=== PATIENT | female | born 1955 | race Caucasian/White ===

== ENCOUNTER 2019-07-15 14:30 | Inpatient (IN) | payer BC ==
[~2019-07-15] VITALS: Ht 175.3 cm; Wt 82.0 kg
[2019-07-15] MEDS ORDERED: ZOFRAN ODT4 MG/UDTAB PO (17:46)
--- NOTE | 2019-07-15 17:56 | NUR ---
RECIVED FROM DR KERR TO ROOM 2110. ADMIT ASSISMENT PER RN
[2019-07-15 18:26] VITALS: BP 120/65
[2019-07-15 18:50] LABS: BASOPHILS 0.1 % (0-2); EOSINOPHILS 0 % (0-7); HEMOGLOBIN 13.6 g/dL (12-16); IMMATURE GRANULOCYTES 0.9 % (0-5); LYMPHOCYTES 5.7 % (15-50); MCH 29.5 pg (26.0-34.0); MCV 86.8 fL (80.0-100.0); MEAN PLATELET VOLUME 9.4 fL (7.4-10.4); MONOCYTES 3.6 % (2-11); NEUTROPHILS 89.7 % (40-80); PLATELET COUNT 168 10x3/uL (130-400); RBC 4.61 10x6/uL (4.00-5.40); RDW 13.1 % (11.5-14.5); WBC 14.9 10x3/uL (4.8-10.8)
[2019-07-15 19:07] LABS: INR 1.24 (0.85-1.17); PROTIME 15.6 SECONDS (11.6-15.0)
[2019-07-15 19:33] LABS: CALC OSMOLALITY 253 mosm/kg (275-300); CALCIUM 8.2 mg/dL (8.5-10.1); CARBON DIOXIDE 25.5 mmol/L (21.0-32.0); CHLORIDE - SERUM 91 mmol/L (98-107); CREATININE - SERUM 1.1 mg/dL (0.6-1.3); GLUCOSE 137 mg/dL (74-106); POTASSIUM - SERUM 3.5 mmol/L (3.5-5.1); SODIUM 125 mmol/L (136-145); UREA NITROGEN 13 mg/dL (7-18); eGFR NON AFRICAN AMERICAN 53 mL/min (90-120)
[2019-07-15 19:46] LABS: D-DIMER-QUANTITATIVE 4.98 ug/mLFEU (0.20-0.54)
[2019-07-15 19:52] LABS: ERYTHROCYTE SEDIMENTATION RATE 50 mm/hr (0-30)
[2019-07-15 20:00] VITALS: BP 125/75
[2019-07-15 20:08] LABS: ALBUMIN 2.9 g/dL (3.4-5.0); ALKALINE PHOSPHATASE 43 U/L (30-120); ALT (SGPT) 84 U/L (10-68); BILIRUBIN - TOTAL 0.58 mg/dL (0.2-1.3); CKMB 0.3 U/L (0.0-3.6); CREATINE KINASE 284 UL (21-215); MAGNESIUM - SERUM 2.2 mg/dL (1.8-2.4); PHOSPHOROUS 2.1 mg/dL (2.5-4.9); PROTEIN - SERUM 6.3 g/dL (6.4-8.2)
[2019-07-15 20:10] LABS: FERRITIN 2121 ng/mL (3-244); TROPONIN-I < 0.017 ng/mL (0.000-0.060)
[2019-07-15 20:27] LABS: C-REACTIVE PROTEIN 29.7 mg/dL (0.0-0.9)
--- NOTE | 2019-07-15 23:20 | NUR ---
NEW 20G PIV STARTED IN R FOREARM FOR CT AT THIS TIME. CL IN REACH, BED IN LOWEST POSITION.
[2019-07-16] VITALS: BP 119/76
--- NOTE | 2019-07-16 00:15 | NUR ---
PT TO CT AT THIS TIME.
--- NOTE | 2019-07-16 00:21 | NUR ---
PT RETURNED FROM CT AT THIS TIME. PT PIV RESTARTED TO R FOREARM, PT DENIES ANY PAIN OR NEEDS AT THIS TIME. CL IN REACH, BED IN LOWEST POSITION.
[2019-07-16 04:00] VITALS: BP 117/73
[2019-07-16 06:20] VITALS: BMI 27.9
[2019-07-16 07:17] LABS: ALBUMIN 2.5 g/dL (3.4-5.0); ALKALINE PHOSPHATASE 37 U/L (30-120); ALT (SGPT) 75 U/L (10-68); BILIRUBIN - TOTAL 0.52 mg/dL (0.2-1.3); CALCIUM 7.7 mg/dL (8.5-10.1); CARBON DIOXIDE 24.3 mmol/L (21.0-32.0); CHLORIDE - SERUM 96 mmol/L (98-107); GLUCOSE 107 mg/dL (74-106); MAGNESIUM - SERUM 2.2 mg/dL (1.8-2.4); PHOSPHOROUS 2.3 mg/dL (2.5-4.9); POTASSIUM - SERUM 3.5 mmol/L (3.5-5.1); PROTEIN - SERUM 5.6 g/dL (6.4-8.2); SODIUM 128 mmol/L (136-145); eGFR NON AFRICAN AMERICAN 77 mL/min (90-120)
[2019-07-16 07:18] LABS: CALC OSMOLALITY 255 mosm/kg (275-300); CREATININE - SERUM 0.8 mg/dL (0.6-1.3); UREA NITROGEN 9 mg/dL (7-18)
[2019-07-16 08:01] LABS: BASOPHILS 0.1 % (0-2); EOSINOPHILS 0.5 % (0-7); HEMATOCRIT 38.6 % (36.0-48.0); HEMOGLOBIN 13.3 g/dL (12-16); IMMATURE GRANULOCYTES 1.3 % (0-5); MCH 29.3 pg (26.0-34.0); MCHC 34.5 g/dL (31.0-37.0); MEAN PLATELET VOLUME 9.8 fL (7.4-10.4); MONOCYTES 3.2 % (2-11); NEUTROPHILS 84.9 % (40-80); PLATELET COUNT 157 10x3/uL (130-400); RBC 4.54 10x6/uL (4.00-5.40); RDW 13.2 % (11.5-14.5); WBC 15.5 10x3/uL (4.8-10.8)
[2019-07-16 08:55] VITALS: BP 115/67
[2019-07-16 12:41] VITALS: BP 100/48
--- NOTE | 2019-07-16 13:10 | NUR ---
PT WITH TEMP THIS MORNING, TREATED WITH TYLENOL AND NORMAL NOW. SHE HAS BEEN SHAKING AND TREMBLING MOSTLY IN UPPER EXTREMITIES WHILE HOLDING THINGS. ON TELEMETRY RUNNING SINUS TACH LOW 100'S BUT UP IN 150'S WHEN GOING TO BATHROOM.
[2019-07-16 13:23] LABS: BILIRUBIN NEGATIVE (NEGATIVE); GLUCOSE NEGATIVE (NEGATIVE); KETONE NEGATIVE (NEGATIVE); NITRITE NEGATIVE (NEGATIVE); SPECIFIC GRAVITY 1.005 (1.005-1.020); UROBILINOGEN 4 mg/dL (NORMAL)
[2019-07-16 13:24] LABS: BACTERIA MODERATE /hpf (NEGATIVE); EPITHELIAL CELLS RARE /hpf (0-5); RED CELLS - URINE RARE /hpf (0-5); WHITE CELLS - URINE RARE /hpf (NEGATIVE)
--- NOTE | 2019-07-16 15:53 | NUR ---
DR KATTY MICHAEL RELATED TO PT'S TACHYCARDIA AND RECEIVING UPDRAFT TREATMENTS. TREATMENTS HELD, EKG AND LABS ORDERED.
[2019-07-16 16:34] VITALS: BP 111/61
--- NOTE | 2019-07-16 19:00 | NUR ---
EVENING ROUNDS COMPLETE. PT SITTING UP IN BED. NO SIGNS OF DISTRESS. PT DENIES ANY PAIN AT THIS TIME. PT REQUEST FOR SOMETHING TO EAT SINCE SHE WASNT ABLE TO FINISH DINNER BEFORE IT WAS REMOVED FROM HER ROOM, SANDWICH BOX PROVIDED. ASSISED PT TO SIT ON SIDE OF BED. PT NEEDED MINIMAL ASSISTANCE. NO OTHER NEEDS VOICED AT THIS TIME. CL IN REACH, BED IN LOWEST POSITION.
[2019-07-16 20:00] VITALS: BP 111/66
--- NOTE | 2019-07-16 23:30 | NUR ---
PT TEMP OF 101.5 ORAL. TYLENOL GIVEN AT THIS TIME. CL IN REACH, BED IN LOWEST POSITION. PT DENIES ANY PAIN OR NEEDS AT THIS TIME.
[2019-07-17] VITALS: BP 100/60
[2019-07-17 04:00] VITALS: BP 101/51
[2019-07-17 05:57] LABS: BASOPHILS 0.1 % (0-2); EOSINOPHILS 1.9 % (0-7); HEMATOCRIT 38.1 % (36.0-48.0); HEMOGLOBIN 12.6 g/dL (12-16); IMMATURE GRANULOCYTES 1.5 % (0-5); LYMPHOCYTES 11.8 % (15-50); MCHC 33.1 g/dL (31.0-37.0); MEAN PLATELET VOLUME 9.5 fL (7.4-10.4); MONOCYTES 1.8 % (2-11); NEUTROPHILS 82.9 % (40-80); PLATELET COUNT 177 10x3/uL (130-400); RBC 4.35 10x6/uL (4.00-5.40); RDW 13.4 % (11.5-14.5)
[2019-07-17 06:20] LABS: MCV 87.6 fL (80.0-100.0); WBC 8.7 10x3/uL (4.8-10.8)
[2019-07-17 06:26] LABS: ALBUMIN 2.4 g/dL (3.4-5.0); ANION GAP 11.3 mmol/L (8-16); BILIRUBIN - TOTAL 0.58 mg/dL (0.2-1.3); CALCIUM 7.6 mg/dL (8.5-10.1); CREATININE - SERUM 0.9 mg/dL (0.6-1.3); MAGNESIUM - SERUM 2.3 mg/dL (1.8-2.4); PHOSPHOROUS 2.6 mg/dL (2.5-4.9); POTASSIUM - SERUM 3.3 mmol/L (3.5-5.1); PROTEIN - SERUM 5.6 g/dL (6.4-8.2); VANCOMYCIN - TROUGH 6.1 ug/mL (10.0-20.0)
[2019-07-17 08:24] VITALS: BP 107/63
[2019-07-17 12:34] VITALS: BP 98/59
--- NOTE | 2019-07-17 15:28 | MORECARE ---
CASE MANAGEMENT DISCHARGE SUMMARY PATIENT: BABAR JACKMAN UNIT: [id number] ADM DATE: 07/15/19 AGE: 63 : 59 SEX: F ROOM/BED: D.2111 AUTHOR: BRENDA GUTIERREZ PHYSICIAN: REFERRING PHYSICIAN: NOE ROJAS MD DATE OF SERVICE: 07/17/19 Discharge Plan Patient Name: BABAR JACKMAN Facility: [facility]:[place] : 1955 Planned Disposition: Home Anticipated Discharge Date: Discharge Date: Expected LOS: Initial Reviewer: [email or web address] Initial Review Date: 07/17/2019 Generated: 07/17/19 4:28 pm Patient Name: BABAR JACKMAN Page [id number] at 1528 All edits/amendments must be made on the electronic document DICTATION DATE: 07/17/19 152 LIVE AMMUNITION INSPECTOR: CARLOS 07/17/19 1528 RPT#: [id number] DC DATE: STATUS: ADM IN [facility] [address] [place] [address] END OF REPORT
--- NOTE | 2019-07-17 15:36 | MORECARE ---
CASE MANAGEMENT DISCHARGE SUMMARY PATIENT: BABAR JACKMAN UNIT: [id number] ADM DATE: 07/15/19 AGE: 63 : 59 SEX: F ROOM/BED: D.[facility] AUTHOR: BRENDA GUTIERREZ PHYSICIAN: REFERRING PHYSICIAN: NOE ROJAS MD DATE OF SERVICE: 07/17/19 Discharge Plan Patient Name: BABAR JACKMAN [facility] [facility] 1955 Planned Disposition: Home Anticipated Discharge Date: Discharge Date: Expected LOS: Initial Reviewer: [email or web address] Initial Review Date: 07/17/2019 Generated: 07/17/19 4:35 pm DCPIA - Discharge Planning Initial Assessment Updated by [email or web address]: Kalli Workman on 07/17/19 3:34 pm * Is the patient Alert and Oriented? Yes * How many steps to enter\exit or inside your home? 0/0 * PCP Dr. Rojas * Pharmacy [facility] on [address] * Preadmission Environment Home with Family * ADLs Independent * Equipment None * List name and contact numbers for known caregivers / representatives who currently or will assist patient after discharge: Mir Gutierrez - [facility] partner - [phone] * Verbal permission to speak to the caregivers and representatives has been obtained from the patient. Yes * Community resources currently utilized None * Additional services required to return to the preadmission environment? No * Can the patient safely return to the preadmission environment? Yes * Has this patient been hospitalized within the prior 30 days at any hospital? No Last DP export: 07/17/19 2:28 p Patient Name: BABAR JACKMAN Page 55513 at 1536 All edits/amendments must be made on the electronic document DICTATION DATE: 07/17/191534 OFFICE MESSENGER HELPER: CARLOS 07/17/191534 RPT#: [id number] DC DATE: STATUS: ADM IN [facility] [address] [place] [address] END OF REPORT
--- NOTE | 2019-07-17 15:45 | MORECARE ---
CASE MANAGEMENT DISCHARGE SUMMARY PATIENT: BABAR JACKMAN UNIT: [id number] ADM DATE: 07/15/19 AGE: 63 : 59 SEX: F ROOM/BED: D.2111 AUTHOR: BRENDA,DOC PHYSICIAN: REFERRING PHYSICIAN: NOE ROJAS MD DATE OF SERVICE: 07/17/19 Discharge Plan Patient Name: BABAR JACKMAN Facility: [facility]:[place] : 1955 Planned Disposition: Home Anticipated Discharge Date: Discharge Date: Expected LOS: Initial Reviewer: [email or web address] Initial Review Date: 07/17/2019 Generated: 07/17/19 4:44 pm Comments DCP- Discharge Planning Updated by [email or web address]: Kalli Workman on 07/17/19 2:[address] Patient Name: BABAR JACKMAN Admission Status: Elective Accout number: [id number] Admission Date: 07-15-2019 : 1955 Admission Diagnosis:SHORTNESS OF BREATH Attending: DREA Current LOS: 2 Anticipated DC Date: Planned Disposition: Home Primary Insurance: [employer] EXCHANGE Discharge Planning Comments: CM met with patient to discuss discharge planning, she is alone in the room. She lives with her 87 year old mother. She is independent with all ADL's and IADL's. I discussed the availability of home health, rehab and DME needs. She denies needs and states plan is to return home. She states her boyfriend will take her home at discharge. No needs identified. She will need to be off her oxygen prior to discharge. I spoke with Roxanne Calix, her sales agent casualty insurance, and Roxanne will f/u with patient on discharge. CM will continue to follow and assist with discharge planning/needs. Manager Social Responsibility: Kalli Workman DCPIA - Discharge Planning Initial Assessment Updated by [email or web address]: Kalli Workman on 07/17/19 3:34 pm * Is the patient Alert and Oriented? Yes * How many steps to enter\exit or inside your home? 0/0 * PCP Dr. Rojas * Pharmacy [facility] on [address] * Preadmission Environment Home with Family * ADLs Independent * Equipment None * List name and contact numbers for known caregivers / representatives who currently or will assist patient after discharge: Mir Gutierrez - [facility] partner - [phone] * Verbal permission to speak to the caregivers and representatives has been obtained from the patient. Yes * Community resources currently utilized None * Additional services required to return to the preadmission environment? No * Can the patient safely return to the preadmission environment? Yes * Has this patient been hospitalized within the prior 30 days at any hospital? No Last DP export: 07/17/19 2:35 p Patient Name: BABAR JACKMAN Page [id number] at 1545 All edits/amendments must be made on the electronic document DICTATION DATE: 07/17/191543 CEMENTER MACHINE APPLICATOR: CARLOS 07/17/191543 RPT#: [id number] DC DATE: STATUS: ADM IN [facility] [address] [place] [address] END OF REPORT
[2019-07-17 16:22] VITALS: BP 111/66
[2019-07-17 20:30] VITALS: BP 111/70
--- NOTE | 2019-07-17 23:27 | NUR ---
RECEIVED SITTING UP IN THE MIDDLE OF THE BED. ALERT AND ORIENTED X4. DOES HAVE PERIODS OF FORGETFULNESS. UP AD ДМИТРИЙ. O2@ 2 LITERS PER N/C. IV TO LT FA WITH NS AT 100CC/HR.DENIES ANY NEEDS AT THIS TIME.
[2019-07-18 00:30] VITALS: BP 115/54
[2019-07-18 04:30] VITALS: BP 128/69
[2019-07-18 04:55] LABS: BASOPHILS 0.3 % (0-2); EOSINOPHILS 2.9 % (0-7); HEMATOCRIT 34.6 % (36.0-48.0); HEMOGLOBIN 11.4 g/dL (12-16); IMMATURE GRANULOCYTES 0.8 % (0-5); LYMPHOCYTES 14.5 % (15-50); MCH 28.8 pg (26.0-34.0); MCHC 32.9 g/dL (31.0-37.0); MCV 87.4 fL (80.0-100.0); MEAN PLATELET VOLUME 9.8 fL (7.4-10.4); MONOCYTES 4.7 % (2-11); NEUTROPHILS 76.8 % (40-80); PLATELET COUNT 144 10x3/uL (130-400); RBC 3.96 10x6/uL (4.00-5.40); RDW 13.5 % (11.5-14.5); WBC 7.5 10x3/uL (4.8-10.8)
[2019-07-18 05:34] LABS: ALBUMIN 2.1 g/dL (3.4-5.0); ANION GAP 8.5 mmol/L (8-16); BILIRUBIN - TOTAL 0.37 mg/dL (0.2-1.3); CALCIUM 7.9 mg/dL (8.5-10.1); CARBON DIOXIDE 25.7 mmol/L (21.0-32.0); CREATININE - SERUM 0.9 mg/dL (0.6-1.3); MAGNESIUM - SERUM 2.3 mg/dL (1.8-2.4); POTASSIUM - SERUM 3.2 mmol/L (3.5-5.1); PROTEIN - SERUM 5.8 g/dL (6.4-8.2)
--- NOTE | 2019-07-18 08:48 | NUR ---
7929-ROUNDING DONE WITH PATIENT HAVING NO NEEDS AT THIS TIME. LEFT INNER FORARM WITH IV INFUSING AT 100 CC/HR, SLIGHTLY RED IN COLOR. DENIES ANY PAIN OR DISCOMFORT AT SITE. SALINE LOCK FOR NOW. ON HEART MONITOR SHOWING SR, HR 92. ON 2L PER NC. GLASSES ON. ON EP, K+ WAS 3.2 AND COVERED. LAB IS ORDERED FOR RE-DRAW. CALL LIGHT IN USE.
--- NOTE | 2019-07-18 08:51 | NUR ---
CALLED BACK INTO ROOM PATIENT STATES THAT SHE IS "FEELING MUCH BETTER AND ON TRACK". ASKING TO TAKE A SHOWER. I ASKED THAT WE GET MEDS DONE AND WAIT CLOSED TO NOON OR SLIGHTLY AFTER TO SEE HOW SHE DOES. STATES, "THAT'S OKAYW ITH ME".
[2019-07-18 09:47] VITALS: BP 109/67
--- NOTE | 2019-07-18 10:53 | NUR ---
IV SITE TO LEFT INNER FA IS STILL RED. I WENT AHEAD AND REMOVED CATH WITH TIP INTACT. RESITED WITH 1 STICK TO RIGHT WRIST WITH 22 G. TOLERATED WELL.
[2019-07-18 13:10] VITALS: BP 107/65
--- NOTE | 2019-07-18 15:31 | NUR ---
PATIENT IS AWAKE NOW. DOES NOT WANT TO WASH UP OR HAVE LINENS CHANGED AT THIS TIME. JUST WANTS TO "CHILL". DOES NOT WANT TO TAKE HER ELADIA REMY. A/O X 4.
[2019-07-18 17:59] VITALS: BP 115/66; BP 140/71
--- NOTE | 2019-07-18 19:54 | NUR ---
RECEIVED BEDSIDE SHIFT REPORT. ALERT AND ORIETNED X4. LAYING IN BED WITH TV ON.IV TO RT WRIST SL. TELEMETRY IN PLACE. DENIES ANY NEEDS AT THIS TIME.
[2019-07-18 20:30] VITALS: BP 120/68
[2019-07-19 00:30] VITALS: BP 113/68
[2019-07-19 04:25] VITALS: BP 118/75
[2019-07-19 05:01] LABS: BASOPHILS 0.2 % (0-2); EOSINOPHILS 3.3 % (0-7); HEMATOCRIT 34.7 % (36.0-48.0); HEMOGLOBIN 11.2 g/dL (12-16); IMMATURE GRANULOCYTES 0.6 % (0-5); LYMPHOCYTES 18.2 % (15-50); MCH 28.7 pg (26.0-34.0); MCHC 32.3 g/dL (31.0-37.0); MEAN PLATELET VOLUME 9.4 fL (7.4-10.4); MONOCYTES 4.9 % (2-11); NEUTROPHILS 72.8 % (40-80); PLATELET COUNT 167 10x3/uL (130-400); RDW 13.9 % (11.5-14.5); WBC 6.3 10x3/uL (4.8-10.8)
[2019-07-19 05:18] LABS: ALKALINE PHOSPHATASE 35 U/L (30-120); ALT (SGPT) 90 U/L (10-68); BILIRUBIN - TOTAL 0.37 mg/dL (0.2-1.3); CALC OSMOLALITY 280 mosm/kg (275-300); CALCIUM 7.4 mg/dL (8.5-10.1); CARBON DIOXIDE 27.4 mmol/L (21.0-32.0); CHLORIDE - SERUM 108 mmol/L (98-107); GLUCOSE 98 mg/dL (74-106); MAGNESIUM - SERUM 2.2 mg/dL (1.8-2.4); PHOSPHOROUS 2.2 mg/dL (2.5-4.9); POTASSIUM - SERUM 3.8 mmol/L (3.5-5.1); PROTEIN - SERUM 5.5 g/dL (6.4-8.2); SODIUM 142 mmol/L (136-145); UREA NITROGEN 8 mg/dL (7-18)
[2019-07-19 05:27] LABS: CREATININE - SERUM 0.6 mg/dL (0.6-1.3); eGFR NON AFRICAN AMERICAN > 90 mL/min (90-120)
--- NOTE | 2019-07-19 07:20 | NUR ---
RECIEVE REPORT. RESTING IN BED WITH EYES CLOSED. AROUSES TO STIMULI EASILY. DENIES ANY NEEDS. CONTINUE PLAN OF CARE AND SAFETY PRECAUTIONS.
--- NOTE | 2019-07-19 08:56 | EC ---
PATIENT:BABAR JACKMAN DATE OF SERVICE: 07/15/19 SEX: F MEDICAL RECORD: [id number] DATE OF : [birth year] LOCATION:D.M2 D.211 AGE OF PATIENT: 63 ADMISSION DATE: 07/15/19 REFERRING PHYSICIAN: INTERPRETING PHYSICIAN: KELSEY ALEXANDER MD ECHOCARDIOGRAM REPORT ECHO CHARGES 4 ECHO COMPLETE Date: 07/17/19 CLINICAL DIAGNOSIS: AFIB ECHOCARDIOGRAPHIC MEASUREMENTS (adult normal given) AC root (d.<3.7cm) 2.7 cm LV Septum d (<1.2 cm> 1.0 cm Valve Excursion 1.8 cm LV Septum (systole) 1.3 cm Left Atria (s.<4.0cm> 3.0 cm LVPW d(<1.2cm) 0.9 cm RV (d.<2.3cm) 2.3 cm LVPW (sytole) 1.2 cm LV diastole(<5.6CM) 4.9 cm MV E-F(>70mm/sec) cm LV systole 3.6 cm LVOT Diameter 1.8 cm MV exc.(>10mm) cm Est.ejection fraction (50-75%) % DOPPLER: LVIT cm/sec A 74 cm/sec E 93 cm/sec LA cm/sec RVSP 16.8 mmHg LVOT 105 cm/sec AOP1/2T m/s Asc. Ao 142 cm/sec RVOT 64 cm/sec RA cm/sec PA 85 cm/sec AV Gradient Peak 8.1 mmHg AV Mean 4.6 mmHg AV Area 2.1 cm MV Gradient Peak 5.0 mmHg MV Mean 2.9 mmHg MV Area cm COMMENTS: Meat Pickler: Ramila SPENCER Franchise Sales Director: 3 Dr. Lambert TAPE# PACS Pericardial Effusion N DATE OF SERVICE: Adequate 2D, color flow imaging, spectral Doppler, and M-Mode No LVH. LV internal dimension is normal. Wall motion is normal. EF is greater than or equal to 55%. Aortic valve is tricuspid. No evidence of stenosis by Doppler interrogation. Left atrium is normal at 3.0 cm. Mitral valve shows no prolapse. Trace MR. Right-sided chambers are grossly normal. Trace TR. TRANSINT:[id number] Voice Confirmation ID: [id number] DOCUMENT ID: [id number] ECHOCARDIOGRAM REPORT [id number] JACKMAN,BABARKELSEY TREJO MD at 0856 CC: [id number] DICTATION DATE: 07/18/19 1000 SUPERVISOR [employer]: 07/18/19 1510 ADM IN [place] [id number] [place] [id number]
[2019-07-19 09:24] VITALS: BP 113/66
[2019-07-19 12:10] VITALS: BP 106/63; BP 161/74
[2019-07-19 20:00] VITALS: BP 123/79
--- NOTE | 2019-07-19 20:18 | NUR ---
RECIEVED UP IN BED WITH EYES OPEN AND TV ON. ALERT AND ORIENTED X4. UP ADF ДМИТРИЙ TO B/R.O2@2 LITERS PER N/C. IV TO RT WRIST SL. TELEMETRY IN PLACE. DENIES ANY NEEDS AT THIS TIME.
[2019-07-20 04:31] VITALS: BP 120/80
--- NOTE | 2019-07-20 07:20 | NUR ---
RECIEVE REPORT. ALERT AND ORIENTED X 4. SITTING UP IN BED. DENIES ANY NEEDS. NO SIGN OF DISTRESS. CONTINUE PLAN OF CARE AND SAFETY PRECAUTIONS.
[2019-07-20 08:00] LABS: BASOPHILS 0.2 % (0-2); EOSINOPHILS 4.1 % (0-7); HEMATOCRIT 40.6 % (36.0-48.0); HEMOGLOBIN 13.1 g/dL (12-16); IMMATURE GRANULOCYTES 0.5 % (0-5); LYMPHOCYTES 22.5 % (15-50); MCHC 32.3 g/dL (31.0-37.0); MCV 89.8 fL (80.0-100.0); MEAN PLATELET VOLUME 8.7 fL (7.4-10.4); MONOCYTES 6.5 % (2-11); NEUTROPHILS 66.2 % (40-80); RBC 4.52 10x6/uL (4.00-5.40); RDW 13.9 % (11.5-14.5)
[2019-07-20 08:05] LABS: PLATELET COUNT 347 10x3/uL (130-400); WBC 8.2 10x3/uL (4.8-10.8)
[2019-07-20 08:28] LABS: ALKALINE PHOSPHATASE 46 U/L (30-120); CALC OSMOLALITY 276 mosm/kg (275-300); CALCIUM 8.3 mg/dL (8.5-10.1); CARBON DIOXIDE 27.1 mmol/L (21.0-32.0); CHLORIDE - SERUM 107 mmol/L (98-107); CREATININE - SERUM 0.6 mg/dL (0.6-1.3); GLUCOSE 104 mg/dL (74-106); MAGNESIUM - SERUM 2.6 mg/dL (1.8-2.4); PROTEIN - SERUM 6.1 g/dL (6.4-8.2); SODIUM 139 mmol/L (136-145); UREA NITROGEN 9 mg/dL (7-18); eGFR NON AFRICAN AMERICAN > 90 mL/min (90-120)
[2019-07-20 08:29] LABS: ALBUMIN 2.6 g/dL (3.4-5.0); ALT (SGPT) 142 U/L (10-68); PHOSPHOROUS 3.4 mg/dL (2.5-4.9); POTASSIUM - SERUM 4.4 mmol/L (3.5-5.1)
[2019-07-20 09:46] VITALS: BP 112/68
[2019-07-20 11:51] VITALS: BP 98/65
--- NOTE | 2019-07-20 14:20 | NUR ---
ALERT AND ORIENTED X4. SITTING UP IN BED WATCHING TV. INFORM PATIENT OF REHAB PRESCREEN. PATIENT STATES, "NO, I AM NOT GOING TO REHAB. I CAN DO FOR MYSELF." NOTIFY MALOU PÉREZ PATIENT STATEMENT. RT HAND IV INFILTRATED. DC RT HAND IV TIP INTACT. CONTINUE PLAN OF CARE AND SAFETY PRECAUTIONS.
--- NOTE | 2019-07-20 14:54 | NUR ---
ALERT AND ORIENTED X4. SITTING UP IN BED. SPEECH THERAPY AT BEDSIDE. RESITE IV TO LT HAND 22G. CONTINUE ANTIBIOTICS ORDERED.
--- NOTE | 2019-07-20 14:55 | NUR ---
REHAB PRESCREENING Rehab referral received and chart reviewed. PT note today states this patient is up and walking around fine on her own and wants to be signed off to nursing. Please contact rehab if this patient has a decline in function. Thank you for this referral! Shawanda Riley, ANTIQUE CLOCK REPAIRER Rehab PD
--- NOTE | 2019-07-20 15:31 | MORECARE ---
CASE MANAGEMENT DISCHARGE SUMMARY PATIENT: BABAR JACKMAN UNIT: [id number] ADM DATE: 07/15/19 AGE: 63 : 59 SEX: F ROOM/BED: D.2111 AUTHOR: BRENDA,DOC PHYSICIAN: REFERRING PHYSICIAN: NOE ROJAS MD DATE OF SERVICE: 07/20/19 Discharge Plan Patient Name: BABAR JACKMAN Facility: [facility]:[place] : 1955 Planned Disposition: Home Anticipated Discharge Date: Discharge Date: Expected LOS: Initial Reviewer: [email or web address] Initial Review Date: 07/17/2019 Generated: 07/20/19 4:31 pm Comments DCP- Discharge Planning Updated by [email or web address]: Gisell Vega on 07/20/19 2:[address] CM visited patient regarding an order for Inpatient Rehab. patient states she has no need to go into rehab. Patient states she is independent with all of her care, walks around the room independently. Patient states if she requires IV antibiotics at time of DC, she will choose a HHS. Patient states she lives with her 87 year old mother, in a fdc community. Denies use of DME. States "I'm just not interested in rehab." CM will follow and assist PRN. DCP- Discharge Planning Updated by [email or web address]: Kalli Workman on 07/17/19 2:[address] Patient Name: BABAR JACKMAN Admission Status: Elective Accout number: [id number] Admission Date: 07-15-2019 : 1955 Admission Diagnosis:SHORTNESS OF BREATH Attending: DREA Current LOS: 2 Anticipated DC Date: Planned Disposition: Home Primary Insurance: [employer] EXCHANGE Discharge Planning Comments: CM met with patient to discuss discharge planning, she is alone in the room. She lives with her 87 year old mother. She is independent with all ADL's and IADL's. I discussed the availability of home health, rehab and DME needs. She denies needs and states plan is to return home. She states her boyfriend will take her home at discharge. No needs identified. She will need to be off her oxygen prior to discharge. I spoke with Roxanne Calix, her insurance representative, and Roxanne will f/u with patient on discharge. CM will continue to follow and assist with discharge planning/needs. Curriculum Development Manager: Kalli Workman DCPIA - Discharge Planning Initial Assessment Updated by [email or web address]: Kalli Workman on 07/17/19 3:34 pm * Is the patient Alert and Oriented? Yes * How many steps to enter\\exit or inside your home? 0/0 * PCP Dr. Rojas * Pharmacy [facility] on [address] * Preadmission Environment Home with Family * ADLs Independent * Equipment None * List name and contact numbers for known caregivers / representatives who currently or will assist patient after discharge: Mir Gutierrez - life partner - [phone] * Verbal permission to speak to the caregivers and representatives has been obtained from the patient. Yes * Community resources currently utilized None * Additional services required to return to the preadmission environment? No * Can the patient safely return to the preadmission environment? Yes * Has this patient been hospitalized within the prior 30 days at any hospital? No Last DP export: 07/17/19 2:45 p Patient Name: BABAR JACKMAN Page [id number] at 1531 All edits/amendments must be made on the electronic document DICTATION DATE: 07/20/191530 POLITICAL RESEARCH SCIENTIST: CARLOS 07/20/191530 RPT#: [id number] DC DATE: STATUS: ADM IN [facility] [address] [place] [address] END OF REPORT
[2019-07-20 17:02] VITALS: BP 109/70
--- NOTE | 2019-07-20 19:21 | NUR ---
ASSESSMENT COMPLETE, PT RESTING WITH EYES CLOSED, RESPERATIONS EVEN AND UNLABORED ON RA. PT AROUSES TO VERBAL STIMULI. IV TO LEFT HAND SL. IV SITE CLEAN AND DRY, NO SWELLING OR REDNESS NOTED. PT CURRENTLY DENIES PAIN OR NEEDS. BED LOW, CL IN REACH.
[2019-07-20 20:00] VITALS: BP 117/69
--- NOTE | 2019-07-20 20:32 | NUR ---
HS MEDS GIVEN WITH FRESH ICE WATER. PT DENIES PAIN OR NEEDS.
[2019-07-21] VITALS: BP 128/75
--- NOTE | 2019-07-21 00:28 | NUR ---
RESTING WITH EYES CLOSED, RESPERATIONS EVEN, NO S/S DISTRESS NOTED.
--- NOTE | 2019-07-21 02:37 | NUR ---
I have reviewed this patient and I concur with the Shift Assessment completed by the Licensed Practical Nurse today this shift.
[2019-07-21 04:00] VITALS: BP 110/73
--- NOTE | 2019-07-21 07:20 | NUR ---
RECIEVE REPORT. ALERT AND ORIENTED X4. SITTING UP IN BED. DENIES ANY NEEDS. NO SIGNS OF DISTRESS. CONTINUE PLAN OF CARE AND SAFETY PRECAUTIONS.
[2019-07-21 07:52] VITALS: BP 114/69
[2019-07-21 11:36] VITALS: BP 95/58
[2019-07-21 12:42] VITALS: Ht 175.3 cm; Wt 82.0 kg
[2019-07-21 14:48] VITALS: BP 108/60
--- NOTE | 2019-07-21 14:58 | NUR ---
OT NOTE: PT RESTING IN BED. STATED THAT SHE THOUGHT SHE WOULD BE GOING HOME BUT HAS TO STAY BECAUSE OF IV ANTIBIOTICS.. REPORTS NO NEEDS AND STATES THAT SHE HAS CONTINUALLY BEEN GETTING UP AD ДМИТРИЙ IN ROOM. SUSAN TOMLIN, OTR/L [phone]
--- NOTE | 2019-07-21 19:14 | NUR ---
REPORT RECEIVED, WILL CONTINUE POC. PATIENT IS AAOX4, SITTING IN CHAIR. NO S/S OF DISTRESS OBSERVED, RR EVEN AND UNLABORED ON ROOM AIR. PIV TO LT HAND SL, VALERIG C/D/I. PATIENT DENIES NEEDS AT THIS TIME. CL IN RECH, BED LOCKED AND LOWERED. WILL CTM.
[2019-07-21 20:00] VITALS: BP 137/72
[2019-07-22] VITALS: BP 121/67; BP 143/68
--- NOTE | 2019-07-22 03:45 | NUR ---
I have reviewed this patient and I concur with the Shift Assessment completed by the Licensed Practical Nurse today this shift.
[2019-07-22 04:00] VITALS: BP 113/68
[2019-07-22 06:26] LABS: BASOPHILS 0.4 % (0-2); EOSINOPHILS 3.5 % (0-7); HEMATOCRIT 40.6 % (36.0-48.0); HEMOGLOBIN 12.9 g/dL (12-16); IMMATURE GRANULOCYTES 1.3 % (0-5); LYMPHOCYTES 23.9 % (15-50); MCH 28.9 pg (26.0-34.0); MCHC 31.8 g/dL (31.0-37.0); MEAN PLATELET VOLUME 9.2 fL (7.4-10.4); MONOCYTES 6.8 % (2-11); NEUTROPHILS 64.1 % (40-80); RBC 4.46 10x6/uL (4.00-5.40); RDW 13.9 % (11.5-14.5); WBC 7.5 10x3/uL (4.8-10.8)
[2019-07-22 06:28] LABS: PLATELET COUNT 256 10x3/uL (130-400)
[2019-07-22 06:32] LABS: CALC OSMOLALITY 277 mosm/kg (275-300); CALCIUM 8.4 mg/dL (8.5-10.1); CARBON DIOXIDE 24.5 mmol/L (21.0-32.0); CHLORIDE - SERUM 106 mmol/L (98-107); CREATININE - SERUM 0.6 mg/dL (0.6-1.3); GLUCOSE 99 mg/dL (74-106); POTASSIUM - SERUM 4.3 mmol/L (3.5-5.1); SODIUM 139 mmol/L (136-145); eGFR NON AFRICAN AMERICAN > 90 mL/min (90-120)
[2019-07-22 06:34] LABS: UREA NITROGEN 12 mg/dL (7-18)
--- NOTE | 2019-07-22 07:10 | NUR ---
REPORT RECEIVED FROM BICYCLE FITTER AND PATIENT CARE ASSUMED. PATIENT LAYNG IN BED ON BACK AWAKE, ALERT AND ORIENTED X 4. PATIENT STATES THAT SHE DID NOT REST WELL LAST NIGHT AND IS READY TO GO HOME. WILL CONTINUE WITH PLAN OF CARE. SR UP X 2 BED IN LOW POSITION AND CALL LIGHT IN REACH.
[2019-07-22 09:24] VITALS: BP 126/73
[2019-07-22 11:43] VITALS: BP 122/69
[2019-07-22] MEDS ORDERED: DOXYCYCLINE HY100 M2 PO (12:16)
[2019-07-22] MEDS ORDERED: CARDIZEM60 MG PO (12:17)
[2019-07-22] MEDS ORDERED: PROTONIX40 MG PO (12:17)
[2019-07-22 12:28] LABS: ALT (SGPT) 121 U/L (10-68)
--- NOTE | 2019-07-22 15:04 | NUR ---
PAIENT IS STABLE AND VSS. PATIENT DENIES ANY NEEDS OR PAIN. ORDERS RECEIVED FOR DC. WRITTEN AND VERBAL INSTRUCTIONS GIVEN TO PATIENT. PATIENT VERBALIZED UNDERSTANDING AND SIGNED PAPERWORK. IV DCD WITHOUT DIFFICULTY WITH PRESSURE BANDAGE APPLIED. PATIENT IS DRESSED AND AWAITING RIDE.
--- NOTE | 2019-07-22 15:16 | NUR ---
PATIENT TAKEN FRONT DOOR VIA WC ACCOMPANIED BY HOSPITAL PERSONNEL. PATIENT TO PRIVATE VEHICLE DRIVEN BY FRIEND.
--- NOTE | 2019-07-22 15:22 | NUR ---
OT NOTE: PT COMPLETED SIT TO STAND WITH SBA. PT COMPLETED ADL MOB WITH SBA. PT COMPLETED UB HYGIENE TASKS WITH SBA. [phone] THANK YOU,MICHELLE LAMB
== END 2019-07-22 15:17 | disposition home or self-care (01) | DRG 871 ==
LOC: D.M2 14:30
PROVIDERS: Family Medicine; Internal Medicine Nephrology; ADMIT Family Medicine; ATTEND Family Medicine
DX: A41.9 Sepsis, unspecified organism (principal); J18.9 Pneumonia, unspecified organism; J96.01 Acute respiratory failure with hypoxia; E87.1 Hypo-osmolality and hyponatremia; I48.92 Unspecified atrial flutter; K21.9 Gastro-esophageal reflux disease without esophagitis; I48.91 Unspecified atrial fibrillation

== ENCOUNTER → 2019-11-27 15:00 | Outpatient (CLI) | payer BC ==
[2019-07-21 12:42] VITALS: BMI 28.2
[~2019-11-27 15:00] MED LIST: CARDIZEM60 MG PO; DOXYCYCLINE HY100 M2 PO; PROTONIX40 MG PO; ZOFRAN ODT4 MG/UDTAB PO
== END | disposition home or self-care (01) ==
LOC: D.LAB 15:00
PROVIDERS: ATTEND Internal Medicine Pulmonary Disease
DX: Z11.59 Encounter for screening for other viral diseases (principal)

== ENCOUNTER → 2019-11-30 15:09 | Outpatient (CLI) | payer BC ==
[2019-07-21 12:42] VITALS: BMI 28.2
== END | disposition home or self-care (01) ==
LOC: D.RAD 13:45 → D.RT 15:00 → D.RAD 15:09
PROVIDERS: ATTEND Internal Medicine Pulmonary Disease
DX: R06.00 Dyspnea, unspecified (principal)